=== PATIENT | male | born 1950 | race Caucasian/White ===

== ENCOUNTER 2022-05-03 08:52 | Emergency (ER) | payer MEDICARE ==
[~2022-05-03] VITALS: Ht 175.3 cm; Wt 81.6 kg
--- NOTE | 2022-05-03 08:52 | NUR ---
Patient walked into ER with steady gait. A/O x3. NAD noted.
--- NOTE | 2022-05-03 08:54 | NUR ---
Dr. Blackwood at bedside. MSE in progress.
[2022-05-03] MEDS ORDERED: KETOROLAC TROMETHAMINE 30 MG INJ IM ONE (09:15)
[2022-05-03] MEDS ORDERED: ACETAMINOPHEN 325 MG TABLET PO ONE (09:15)
[2022-05-03] MEDS ORDERED: ACETAMINOPHEN 325 MG TABLET ONE (09:16)
[2022-05-03] MEDS ORDERED: KETOROLAC TROMETHAMINE 30 MG INJ ONE (09:16)
--- NOTE | 2022-05-03 10:43 | NUR ---
Patient discharged to home in stable condition. A/O x3. NAD noted. Ambulatory with steady gait. All belongings with patient. Written and verbal after care instructions given. Patient verbalizes understanding of instructions. Stressed follow up or return to ER for worsening s/s.
[2022-05-03 11:06] VITALS: BP 120/81
== END 2022-05-03 10:43 | disposition home or self-care (01) ==
LOC: ER 08:53
DX: M54.2 Cervicalgia (principal); M54.50 Low back pain, unspecified; R51.9 Headache, unspecified
CPT/HCPCS: 99283; 72100; 96372; J1885; A4663